=== PATIENT | female | born 1995 | race Native Hawaiian/Other Pacific Islander ===

== ENCOUNTER 2019-05-27 10:00 | Emergency (ER) | payer MEDICAID ==
[2019-05-27 10:08] VITALS: BP 109/40
--- NOTE | 2019-05-27 10:19 | Emergency Department Report ---
ED Female HPI - General Chief complaint: Vaginal Bleeding Stated complaint: /POSS MISCARRIAGE Time Seen by Provider: 05/27/19 10:17 Source: patient Mode of arrival: Ambulatory Limitations: No Limitations - History of Present Illness Initial comments: 24-year-old female presents to the emergency room for vaginal bleeding since this morning. Patient states that she is approximate 7 weeks . Patient is 3 para 2 last menstrual was 04/01/2019. Patient is currently not started OB care. Patient was followed by my OB with her last . Patient denies abdominal pain no nausea no vomiting at this time. Patient states that she has not filled any pads has a mariana liner on and spotting. She denies any complications with her prior pregnancies. MD Complaint: vaginal bleeding -: This morning Severity: mild Severity scale (0 -10): 0 Are you Now?: Yes Last Menstrual Period: 04/01/19 EDC: 01/06/20 Associated Symptoms: vaginal bleeding - Related Data Sexually active: Yes : 3 Para: 2 Previous Rx's Medication Instructions Recorded Last Taken Type Docusate Sodium [Colace] 100 mg PO BID #30 capsule 12/03/13 Unknown Rx Iron Aspgly,Ps/C/B12/FA/Ca/Suc 1 each PO BID #60 capsule 12/03/13 Unknown Rx [Ferrex 150 Forte Plus Capsule] Nitrofurantoin Summers/M-Cryst 100 mg PO Q12HR #14 capsule 05/27/19 Unknown Rx [Macrobid CAP] Allergies Allergy/AdvReac Type Severity Reaction Status Date / Time No Known Allergies Allergy Verified 12/02/13 04:44 ED Review of Systems ROS: Stated complaint: /POSS MISCARRIAGE Other details as noted in HPI Comment: All other systems reviewed and negative Constitutional: denies: chills, fever Eyes: denies: eye pain, eye discharge, vision change ENT: denies: ear pain, throat pain Respiratory: denies: cough, shortness of breath, wheezing Cardiovascular: denies: chest pain, palpitations Endocrine: no symptoms reported Gastrointestinal: denies: abdominal pain, nausea, diarrhea Genitourinary: denies: urgency, dysuria, discharge Musculoskeletal: denies: back pain, joint swelling, arthralgia Skin: denies: rash, lesions Neurological: denies: headache, weakness, paresthesias Psychiatric: denies: anxiety, depression Hematological/Lymphatic: denies: easy bleeding, easy bruising ED Past Medical Hx - Past Medical History Hx Hypertension: No Hx Congestive Heart Failure: No Hx Diabetes: No Hx Deep Vein Thrombosis: No Hx Renal Disease: No Hx Sickle Cell Disease: No Hx Seizures: No Hx Asthma: No Hx COPD: No Hx HIV: No - Surgical History Past Surgical History?: No - Social History Smoking Status: Never Smoker Substance Use Type: None - Medications Home Medications: Home Medications Medication Instructions Recorded Confirmed Last Taken Type Docusate Sodium [Colace] 100 mg PO BID #30 capsule 12/03/13 Unknown Rx Iron Aspgly,Ps/C/B12/FA/Ca/Suc 1 each PO BID #60 capsule 12/03/13 Unknown Rx [Ferrex 150 Forte Plus Capsule] Nitrofurantoin Summers/M-Cryst 100 mg PO Q12HR #14 capsule 05/27/19 Unknown Rx [Macrobid CAP] ED Physical Exam - General Limitations: No Limitations ED Course Vital Signs 05/27/19 10:06 Temperature 98.6 F Pulse Rate 65 Respiratory 16 Rate Blood Pressure 109/40 [Left] O2 Sat by Pulse 96 Oximetry ED Medical Decision Making - Lab Data Result diagrams: 05/27/19 10:10 - Radiology Data Radiology results: report reviewed Patient: PHUONG NUÑEZ MR #: [id number] : 1995 Acct:[id number] Age/Sex: 24 / F ADM Date: 05/27/19 Loc: ED Attending Dr: Ordering Physician: KAMAR MCNEIL Date of Service: 05/27/19 Procedure(s): OB transvaginal Accession Number(s): [id number] cc: KAMAR MCNEIL ULTRASOUND OBSTETRIC INDICATION: with vaginal bleeding. Estimated clinical gestational age of 7 weeks, 3 days. TECHNIQUE: Transabdominal and Transvaginal. COMPARISON: None available. FINDINGS: GESTATIONAL SAC: None seen. YOLK SAC: None seen. EMBRYO/FETUS: None seen. UTERUS: The endometrium is thickened and contains complex, heterogeneous material, likely representing blood products. No additional significant abnormality. ADNEXA: The right ovary is normal in size and contains a 1.5 cm dominant follicle. The left ovary is normal in size and appearance. No adnexal mass is seen. FREE FLUID: None seen. ADDITIONAL FINDINGS: None. IMPRESSION: 1. No sonographic evidence of an intrauterine or ectopic . 2. No acute sonographic abnormality of the pelvis. Signer Name: Ganesh Davidson MD Signed: 05/27/2019 12:25 PM Workstation Name: [id number] Transcribed By: MN Dictated By: Ganesh Davidson MD Electronically Authenticated By: Ganesh Davidson MD Signed Date/Time: 05/27/19 1225 DD/ 1220 TD/TT: - Medical Decision Making 24-year-old female presents to the emergency room for vaginal bleeding since this morning. Patient states that she is approximate 7 weeks . Patient is 3 para 2 last menstrual was 04/01/2019. Patient is currently not started OB care. Patient was followed by my OB with her last . Patient denies abdominal pain no nausea no vomiting at this time. Patient states that she has not filled any pads has a mariana liner on and spotting. She denies any complications with her prior pregnancies. Vaginal bleeding protocol has been initiated. Waiting for ultrasound to be performed. Critical care attestation.: If time is entered above; I have spent that time in minutes in the direct care of this critically ill patient, excluding procedure time. ED Disposition Clinical Impression: Vaginal bleeding during , UTI (urinary tract infection) during Disposition: - TO HOME OR SELFCARE Is pt being admited?: No Does the pt Need Aspirin: No Condition: Stable Instructions: Urinary Tract Infection in Women (ED), Threatened Miscarriage (ED) Additional Instructions: Please follow up with OB provider in 48 hours to have her repeat hCG. Please complete her antibiotics as prescribed. Prescriptions: Nitrofurantoin Summers/M-Cryst [Macrobid CAP] 100 mg PO Q12HR #14 capsule Forms: Work/School Release Form(ED)
[2019-05-27 10:27] LABS: Basophils % (Auto) 0.2 % (0.0-1.8); Eosinophils # (Auto) 0.1 K/mm3 (0.0-0.4); Eosinophils % (Auto) 1.5 % (0.0-4.3); Hematocrit 36.2 % (30.3-42.9); Hemoglobin 12.6 gm/dl (10.1-14.3); Lymphocytes # (Auto) 1.6 K/mm3 (1.2-5.4); Mean Corpuscular HGB Conc 35 % (30-34); Mean Corpuscular Volume 98 fl (79-97); Monocytes # (Auto) 0.4 K/mm3 (0.0-0.8); Monocytes % (Auto) 6.6 % (0.0-7.3); Platelet Count 213 K/mm3 (140-440)
[2019-05-27 11:43] LABS: Bacteria,Urine 1+ /HPF (Negative); Bilirubin,Urine NEG (Negative); Blood,Urine LG (Negative); Color,Urine Yellow (Yellow); Mucus,Urine 1+ /HPF; Urobilinogen,Urine < 2.0 mg/dL (<2.0)
[2019-05-27 11:53] LABS: RBC,Urine > 182.0 /HPF (0.0-6.0)
--- NOTE | 2019-05-27 12:30 | Ultrasound Report ---
ULTRASOUND OBSTETRIC INDICATION: with vaginal bleeding. Estimated clinical gestational age of 7 weeks, 3 days. TECHNIQUE: Transabdominal and Transvaginal. COMPARISON: None available. FINDINGS: GESTATIONAL SAC: None seen. YOLK SAC: None seen. EMBRYO/FETUS: None seen. UTERUS: The endometrium is thickened and contains complex, heterogeneous material, likely representin g blood products. No additional significant abnormality. ADNEXA: The right ovary is normal in size and contains a 1.5 cm dominant follicle. The left ovary is normal in size and appearance. No adnexal mass is seen. FREE FLUID: None seen. ADDITIONAL FINDINGS: None. IMPRESSION: 1. No sonographic evidence of an intrauterine or ectopic . 2. No acute sonographic abnormality of the pelvis. Signer Name: Ganesh Davidson MD Signed: 05/27/2019 12:25 PM Workstation Name: [id number]
== END 2019-05-27 13:40 | disposition home or self-care (01) ==
LOC: ED 10:00
DX: O23.41 Unspecified infection of urinary tract in pregnancy, first trimester (principal); Z3A.01 Less than 8 weeks gestation of pregnancy
CPT/HCPCS: 36415; 76801; 76817; 81001; 84702; 84703; 85025; 86900; 86901; 87086